=== PATIENT | female | born 1990 | race Caucasian/White ===

== ENCOUNTER 2024-03-03 18:20 | Emergency (ER) | payer BC, SELFPAY ==
[2024-03-03 18:26] VITALS: BP 115/82
[2024-03-03 19:20] VITALS: BMI 22.7
[2024-03-03 19:30] LABS: % Basophils 0.2 % (0-2); % Eosinophils 0.6 % (0-6); % Lymphocytes 17.2 % (20.5-51.1); % Monocytes 3.8 % (1.7-9.3); % Neutrophils 77.2 % (42.2-75.2); Absolute Eosinophils 0.1 10^3/uL (0-0.7); Absolute Immature Granulocytes 0.1 10^3/uL (0-0.05); Absolute Lymphocytes 1.5 10^3/uL (1.2-3.4); Absolute Monocytes 0.3 10^3/uL (0.1-0.6); Absolute Neutrophils 6.7 10^3/uL (1.4-6.5); Hematocrit 29.1 % (37.0-47.0); Hemoglobin 10.6 g/dL (12.0-16.0); Mean Corp Hgb Conc. 36.4 g/dL (33.0-37.0); Mean Corpuscular Hgb 32.8 pg (27.0-31.0); Mean Corpuscular Volume 90.1 fL (81.0-99.0); Mean Platelet Volume 9.6 fL (7.4-10.4); Nucleated Red Blood Cells % 0 %; Platelet Count 214 10^3/uL (130-400); Red Blood Cell Count 3.23 10^6/uL (4.20-5.40); Red Cell Dist. Width 12.7 % (11.5-14.5); White Blood Cell Count 8.7 10^3/uL (4.8-10.8)
--- NOTE | 2024-03-03 19:35 | ED.GENMED ---
History of Present Illness
General
Chief Complaint: Headache
Source: patient
Exam Limitations: none
Time Seen by Provider: 03/03/24 18:42
Travel History
Have you had any contact with someone who has COVID-19?: No
Do you have any symptoms of coronavirus? Fever > 100 degrees, chills, cough, shortness of breath, sore throat, loss of taste or smell, muscle aches, or headache?: No
History of Present Illness
History of Present Illness:
This is a 33 year old female that comes in with c/o right lower leg swelling. States that on 02/27 she had a vaginal delivery. States that she has had a headache that is not getting any better and she also had some blurred vision but this went away.
States that the headache decreased with Advil but never really goes away and then comes back. States that she went home on Friday and her feet were swollen. Now her right leg is more swollen then the left so he felt she needed to come to get an
US. States that she has had some right sided back discomfort and lower groin discomfort but was told that this was form having the baby. States that her headache in on the right side and top of the head and is a dull ache behind the eyes. Denies any
fever, chills, chest pain, SOB, nausea, vomiting, diarrhea, dizziness, urinary burning.
Past History
Past History
ED Past Medical History: None; Negative Asthma, HTN, Hypercholesterolemia or NIDDM
ED Past Surgical History: Gynecological (D&C)
Social History
Tobacco: Non-smoker
Alcohol: None
Personal:
Living: with family
Review of Systems
Review of Systems
All Other Systems: ROS reviewed and negative except as documented in HPI and ROS
Constitutional: Reports no symptoms; Denies fever or chills
EENT: Reports no symptoms
Respiratory: Reports no symptoms; Denies cough or trouble breathing
Cardiac: Reports no symptoms; Denies chest pain
ABD/GI: Reports abdominal pain (Lower groin area); Denies nausea, vomiting or diarrhea
: Reports no symptoms; Denies dysuria, frequency or urgency
Musculoskeletal: Reports edema (Right ankle and lower leg)
Skin: Reports no symptoms
Neurological: Reports headache; Denies dizzy
Psychiatric: Reports no symptoms
Phy Exam
General Physical Exam
General Presentation: well appearing and no apparent distress
General age: appears stated age
General Skin: warm and dry
General Habitus: normal
General Mental: alert
General Hydration: appears well hydrated
ENT Exam
ENT Exam: TM's normal, pharynx normal and neck supple
Eye Exam
Eye Exam: EOMI
Cardiovascular Exam
Cardiovascular Exam: regular rate/rhythm and normal peripheral pulses
Pulmonary Exam
Pulmonary Exam: lungs clear, no respiratory distress, no rales, chest non tender, no crackles, no rhonchi, no wheezing and no cough
Gastrointestinal Exam
Gastrointestinal Exam: normal bowel sounds, non tender, soft, no organomegaly, no pulsatile mass and non distended
Musculoskeletal Exam
Musculoskeletal Exam: full ROM and edema (Swelling right ankle and lower leg nonpitting,)
Skin Exam
Skin Exam: normal color, warm/dry, no rash and no petechia
Psychiatric Exam
Psychiatric Exam: normal mood/affect
Course
Orders/Labs/Results
Orders:
Orders
03/03/24 19:11
US Periph Venous LOWER Ext RT Urgent
Comment: Recent Delivery
Reason For Exam: Swelling,
03/03/24 19:25
Complete Blood Count/With Diff Urgent
Comprehensive Metabolic Panel Urgent
03/03/24 19:35
Acetaminophen [Tylenol] 1,000 mg PO NOW STA
03/03/24 19:36
Ketorolac [Toradol] 30 mg IV NOW STA
Abnormal Lab Results
03/03/24
19:25
RBC 3.23 L 10^6/uL
(4.20-5.40)
Hgb 10.6 L g/dL
(12.0-16.0)
Hct 29.1 L %
(37.0-47.0)
MCH 32.8 H pg
(27.0-31.0)
Abs Immat Gran (auto) 0.1 H 10^3/uL
(0-0.05)
Absolute Neuts (auto) 6.7 H 10^3/uL
(1.4-6.5)
Immature Gran % 1.0 H %
(0-0.5)
Neutrophils % 77.2 H %
(42.2-75.2)
Lymphocytes % 17.2 L %
(20.5-51.1)
Sodium 132 L mmol/L
(135-145)
Creatinine 0.5 L mg/dL
(0.6-1.0)
Total Protein 6.0 L g/dl
(6.3-8.2)
Albumin 3.3 L g/dl
(3.5-5.0)
03/03/24 19:25
03/03/24 19:25
H/H sliglty low. Sodium slightly low. Total protein slightly low. Albumin low.
Vital Signs
Initial and Last Documented VS:
Initial Vital Signs
Temp Pulse Resp BP Pulse Ox
98 F 89 22 115/82 100
03/03/24 18:26 03/03/24 18:26 03/03/24 18:26 03/03/24 18:26 03/03/24 18:26
Last Documented Vital Signs
Temp Pulse Resp BP Pulse Ox
98 F 72 18 101/80 97
03/03/24 18:26 03/03/24 20:10 03/03/24 20:10 03/03/24 20:15 03/03/24 20:10
MDM/Problems Addressed
Differential Diagnosis Includes:
DVT, Fluid overload
MDM/Problems Addressed:
This is a 33 year old female that comes in with c/o right leg swelling and a headache. States that she has had the headache that is dull and will decrease with Advil but then comes back. Patient went to see the PCP and they noticed that the right
leg was swollen so she was sent in for further evaluation.
Will get Ultrasound and medicate for headache pain.
Back into see patient. Explained that the US is negative for DVT. Explained that the the headache may be from all the hormonal changes and it just takes time for the body to process the fluid and adjust to not being . Patient to continue
with her 8-8oz glasses daily. Tylenol or Advil for any headache pain. Follow up with the OUTREACH CONSULTANT or Family doctor. Return with any concerns.
Chronic conditions affecting care:
NA
Acute Exacerbation and/or Progression of Chronic Illness:
NA
*Radiology
Radiology exam reviewed: radiology read reviewed (US=NO evidence of deep venous thrombosis of the right lower extremity. )
*Pulse Oximetry
Patient hypoxic: no
*EKG
Interpreted by ED Provider?: NA
Rate: EKG- N/A
*Ladle Handler Interpretation
Rate: Ladle Handler- N/A
*Critical Care Note
Total Time (30-74mins, 75-104mins- exclusive of procedures): Not Applicable
ED Attending Note
-
Portions of this chart may have been created with voice recognition software.� Occasional wrong word or��sound alike� substitutions may have occurred due to the inherent limitations of voice recognition software.
Discharge Plan
Departure
Patient Disposition: Home (Routine Discharge)
Date of Disposition: 03/03/24
Time of Disposition: 20:54
Patient with high blood pressure during this ER visit?: No
Condition: Good
Covid-19: Not Applicable
Discharge Problem:
Localized swelling of right lower leg, Headache
Instructions: Swelling, Headache, Adult (DC)
Referrals:
Bear Sweet MD [Family Provider] - Follow up in 2-3 days
Activity Restrictions/Additional Instructions:
As discussed, your Ultrasound is negative for DVT. Your body is still adjusting after giving . Your Hormones are changing and this can cause the dull headache. Please continue with your 8-8z glasses of water daily. Use the Tylenol 1000mg every
6 hours for headache pain and alternate with Advil as needed. Follow up with the OUTREACH CONSULTANT and your family doctor for recheck. IF YOU HAVE ANY OTHER CONCERNS PLEASE RETURN TO THE EMERGENCY ROOM.
Interventions
Interventions:
*Risk Screen - Suicide Last Done: 03/03/24 18:26
*General Assessment Last Done: 03/03/24 19:18
*Neglect/Abuse Screening Last Done: 03/03/24 18:26
Discharge Date and Time
Print Language: [place]
[2024-03-03 19:48] LABS: ALT (SGPT) 20 U/L (0-35); AST (SGOT) 35 U/L (14-36); Albumin 3.3 g/dl (3.5-5.0); Alkaline Phosphatase 124 U/L (38-126); Blood Urea Nitrogen 10 mg/dl (7-17); Calcium 9.2 mg/dl (8.4-10.2); Carbon Dioxide 26 mmol/L (22-30); Chloride 103 mmol/L (98-107); Estimated Creatinine Clearance 108 ml/min; Glucose 99 mg/dl (70-99); Potassium 4.1 mmol/L (3.5-5.1); Sodium 132 mmol/L (135-145); Total Bilirubin 0.6 mg/dl (0.2-1.3); eGFR > 60.00
[2024-03-03] MEDS: TYLENOL 1000 MG PO (20:09)
--- NOTE | 2024-03-03 20:12 | FALL ---
Description of Fall:
Injuries Noted:
Action Taken:
Name of Provider Notified:
--- NOTE | 2024-03-03 20:13 | EDRN ---
the pt refused ordered Toradol IVP and states she only wants to take the Tylenol that is ordered. ER Noreen Swanson was notified of above.
[2024-03-03 20:15] VITALS: BP 101/80
== END 2024-03-03 21:10 | disposition home or self-care (01) ==
LOC: EMR 18:20
PROVIDERS: Clinical Nurse Specialist Family Health; EMERGENCY PHYSICIAN Emergency Medicine; FAMILY PHYSICIAN Family Medicine
DX: R22.41 Localized swelling, mass and lump, right lower limb (principal); R51.9 Headache, unspecified
CPT/HCPCS: 99284; 96374; 80053; 85025; 93971